=== PATIENT | female | born 1990 | race Caucasian/White ===

== ENCOUNTER 2017-09-25 08:16 | Emergency (ER) | payer OTHER ==
[~2017-09-25] VITALS: Ht 162.6 cm; Wt 82.8 kg
[~2017-09-25 08:16] MED LIST: CAVAN-FOLATE D1 EACH; ENDOCET 5-3251 EACH PO; Motrin PO; NOHOMEMEDS; No medication
[2017-09-25 09:44] LABS: BASOPHIL (%) 0.3 % (0-1); EOSINOPHIL (%) 0.8 % (0-5); EOSINOPHIL COUNT 0.1 K/uL (0-0.3); HEMATOCRIT 37.6 % (36.0-46.0); HEMOGLOBIN 13.4 G/DL (11.9-15.5); IMMATURE GRANULOCYTE (%) 0.4 % (0.0-0.7); LYMPHOCYTE (%) 10.2 % (15-42); LYMPHOCYTE COUNT 1.3 K/uL (1.0-2.8); MCH 32.5 PG (29.0-34.0); MCHC 35.6 G/DL (30.0-36.0); MCV 91.3 FL (83-99); MONOCYTE (%) 4.2 % (3-12); MONOCYTE COUNT 0.6 K/uL (0-0.8); NEUTROPHIL (%) 84.1 % (45-76); NEUTROPHIL COUNT 10.9 K/uL (1.8-6.4); PLATELET COUNT 208 K/uL (156-360); RBC DIS.WIDTH-CV 12.6 % (11.8-14.6); RBC DIS.WIDTH-SD 41.5 % (39-53); RED BLOOD COUNT 4.12 M/uL (3.80-5.20)
[2017-09-25 09:53] LABS: ALBUMIN 3.9 g/dL (3.2-4.8); CHLORIDE 107 mEq/L (99-109); POTASSIUM 3.7 mEq/L (3.7-5.4); SODIUM 138 mEq/L (136-147)
[2017-09-25 09:55] LABS: GLUCOSE 97 mg/dL (70-99); TOTAL PROTEIN 6.8 g/dL (6.4-8.3)
[2017-09-25 09:57] LABS: TOTAL BILIRUBIN 0.3 mg/dL (0.0-1.0)
[2017-09-25 09:58] LABS: ALKALINE PHOSPHATASE 79 IU/L (3-129)
[2017-09-25 09:59] LABS: CREATININE 0.6 mg/dL (0.6-1.3); GFR ESTIMATE (CALCULATED) > 59 mL/min/
[2017-09-25 10:00] LABS: AST (GOT) 12 IU/L (2-34); UREA NITROGEN (BUN) 5 mg/dL (9-23)
[2017-09-25 10:02] LABS: ALT (GPT) 13 IU/L (3-49)
[2017-09-25 10:10] LABS: APPEARANCE CLEAR ((CLEAR)); BILIRUBIN NEGATIVE; BLOOD NEGATIVE; COLOR STRAW ((YELLOW)); GLUCOSE (STRIP) NEGATIVE; KETONES NEGATIVE; LEUKOCYTES NEGATIVE; NITRITE NEGATIVE; PROTEIN (STRIP) NEGATIVE; SPECIFIC GRAVITY 1.004 (1.000-1.030); UCUL ADDED? NO; UROBILINOGEN 0.2 MG/DL (0.2-1.0)
[2017-09-25] MEDS ORDERED: ZOFRAN ODT4 MG PO (12:53)
[2017-09-25 13:06] VITALS: BP 127/80
== END 2017-09-25 13:07 | disposition home or self-care (01) ==
LOC: EME 08:16
PROVIDERS: Nurse Practitioner Family
DX: O99.282 Endocrine, nutritional and metabolic diseases complicating pregnancy, second trimester (principal); E86.0 Dehydration; R55 Syncope and collapse; Z3A.15 15 weeks gestation of pregnancy; O99.332 Smoking (tobacco) complicating pregnancy, second trimester; F17.200 Nicotine dependence, unspecified, uncomplicated; Z88.0 Allergy status to penicillin
CPT/HCPCS: 76815; 80053; 81003; 85025; 93005; 99281; 99285; J2405; J7030